=== PATIENT | male | born 1980 | race African-American/Black ===

== ENCOUNTER 2020-08-08 09:35 | Emergency (ER) | payer OTHER ==
[~2020-08-08] VITALS: Ht 175.3 cm; Wt 72.0 kg
[2020-08-08] MEDS ORDERED: ONDANSETRON HCL 4MG/2ML INJ IV STA (10:11)
[2020-08-08] MEDS ORDERED: FAMOTIDINE 20MG/2ML VIAL IV STA (10:11)
[2020-08-08] MEDS ORDERED: SODIUM CHLORIDE 0.9% 1,000 ML IV ONE (10:15)
[2020-08-08 10:17] LABS: HEMOGLOBIN. 15.2 g/dL (14.0-18.0); MEAN CORPUSCULAR HEMOGLOBIN 29.7 pg (28.0-32.0); MEAN CORPUSCULAR VOLUME 87.8 fL (80.0-94.0); MEAN PLATELET VOLUME 8.5 fl (7.4-10.4); PLATELET 300 x1000/uL (130-400); RED BLOOD CELL COUNT 5.13 mill/uL (4.7-6.1); RED CELL DISTRIBUTION WIDTH 13.5 % (11.6-14.6)
[2020-08-08 10:27] LABS: CHLORIDE 109 mEq/L (98-107)
[2020-08-08 10:31] LABS: ETHANOL BLOOD 106 mg/dL
[2020-08-08 10:50] LABS: PLATELET ESTIMATE NORMAL
[2020-08-08] MEDS ORDERED: ONDA4TAB5 MT (11:45)
[2020-08-08] MEDS ORDERED: FAMO40TA70 MT (11:45)
[2020-08-08 12:00] VITALS: BP 125/72
== END 2020-08-08 12:29 | disposition home or self-care (01) ==
LOC: ER 09:35
DX: K29.20 Alcoholic gastritis without bleeding (principal); J45.909 Unspecified asthma, uncomplicated; Y90.5 Blood alcohol level of 100-119 mg/100 ml; F17.210 Nicotine dependence, cigarettes, uncomplicated
CPT/HCPCS: 36415; 80053; 80320; 83690; 85025; 96361; 96374; 96375; 99284; J2405; J3490; J7030; Z7610; G0480